=== PATIENT | female | born 1950 | race Caucasian/White ===

== ENCOUNTER 2017-10-12 18:50 | Emergency (ER) | payer MEDICARE ==
[~2017-10-12] VITALS: Ht 160 cm; Wt 63.5 kg
[2017-10-12] MEDS ORDERED: ROPINIROLE HC0.25 MG PO (18:53)
[2017-10-12] MEDS ORDERED: KLONOPIN1 MG ORAL (18:53)
[2017-10-12] MEDS ORDERED: TRAZODONE HCL50 MG ORAL (18:53)
[2017-10-12] MEDS ORDERED: ATORVASTATIN CA20 MG ORAL (18:53)
[2017-10-12 18:54] VITALS: BP 142/71
[2017-10-12] MEDS ORDERED: DiphenhydrAMINE 50mg/ml Inj IM ONE (19:00)
[2017-10-12] MEDS ORDERED: Haloperidol 5mg/ml Inj IM ONE (19:00)
[2017-10-12 19:04] VITALS: BP 142/74
[2017-10-12 19:39] LABS: BASOPHILS % (AUTO) 1.8 % (0.0-2.0); EOSINOPHILS % (AUTO) 1.8 % (0.0-3.0); HEMOGLOBIN 11.4 G/DL (12.0-16.0); LYMPHOCYTES % (AUTO) 21.4 % (20.0-45.0); MEAN CORPUSCULAR VOLUME 91 FL (80-99); MONOCYTES % (AUTO) 10.5 % (1.0-10.0); NEUTROPHILS % (AUTO) 64.6 % (45.0-75.0); PLATELET COUNT 392 K/UL (150-450); RED BLOOD COUNT 3.64 M/UL (4.20-5.40); RED CELL DISTRIBUTION WIDTH 12.7 % (11.6-14.8); WHITE BLOOD COUNT 10.8 K/UL (4.8-10.8)
[2017-10-12 19:42] LABS: ANION GAP 11 mmol/L (5-15); BLOOD UREA NITROGEN 43 mg/dL (7-18); CALCIUM 10.6 MG/DL (8.5-10.1); CARBON DIOXIDE 26 MMOL/L (21-32); CHLORIDE 95 MMOL/L (98-107); CREATININE 1.2 MG/DL (0.55-1.30); POTASSIUM 3.9 MMOL/L (3.5-5.1); SODIUM 132 MMOL/L (136-145)
[2017-10-12] MEDS ORDERED: LORazepam Inj 2mg/ml 1ml IM ONE (19:45)
[2017-10-12 19:58] LABS: ALANINE AMINOTRANSFERASE 25 U/L (12-78); ALBUMIN 4.1 G/DL (3.4-5.0); ALKALINE PHOSPHATASE 90 U/L (46-116); ASPARTATE AMINO TRANSFERASE 18 U/L (15-37); BILIRUBIN,TOTAL 0.4 MG/DL (0.2-1.0)
--- NOTE | 2017-10-12 20:23 | Diagnostic Imaging Report ---
EXAM: CT Head Without Intravenous Contrast CLINICAL HISTORY: PAIN TECHNIQUE: Axial computed tomography images of the head/brain without intravenous contrast. CTDI is 70 mGy and DLP is 1319 mGy-cm. One or more of the following dose reduction techniques were used: automated exposure control, adjustment of the mA and/or kV according to patient size, use of iterative reconstruction technique. COMPARISON: No relevant prior studies available. FINDINGS: Brain: Unremarkable. No hemorrhage. No edema. Ventricles: Unremarkable. No ventriculomegaly. Bones/joints: Unremarkable. No acute fracture. Soft tissues: Unremarkable. Sinuses: Unremarkable as visualized. Mastoid air cells: Right mastoid air cells chronic changes. IMPRESSION: No acute intracranial abnormality.
[2017-10-12 20:26] LABS: APPEARANCE,URINE CLEAR; BILIRUBIN, URINE NEGATIVE (NEGATIVE); COLOR,URINE PALE YELLOW; GLUCOSE, URINE (UA) NEGATIVE (NEGATIVE); KETONES,URINE NEGATIVE (NEGATIVE); LEUKOCYTE ESTERASE ,URINE NEGATIVE (NEGATIVE); NITRITE,URINE NEGATIVE (NEGATIVE); PH,URINE 5 (4.5-8.0); PROTEIN,URINE NEGATIVE (NEGATIVE); UROBILINOGEN,URINE NORMAL MG/DL (0.0-1.0)
--- NOTE | 2017-10-12 21:26 | Emergency Room Report ---
History of Present Illness General Chief Complaint: Behavioral Complaint Source: Patient (Fede Em) Present Illness HPI 67-year-old female patient presents ER brought in by ambulance due to behavioral disorder. EMS reports that he was called by patient's and after she laid down in the hallway and began screaming. Please were called to the scene due to concern over patient being combative, patient was not being combative. Patient repeatedly screaming "I am ". Patient is a poor historian and not answering questions at this time. He is reports patient is a history of diabetes, so no other past medical history. Does not know medications patient is currently taking. Patient denies fever, chest pain or shortness breath, abdominal pain, vomiting. No reports of head trauma or injury. EMS reports family member stated this is not her normal behavior. (Fede Em) Allergies: Coded Allergies: PENICILLINS (Verified Allergy, Mild, 10/12/17) Uncoded Allergies: INSULIN (Allergy, Unknown, 10/12/17) Patient History Past Medical History: see triage record Reviewed Nursing Documentation: PMH: Agreed; PSxH: Agreed (Fede Em) Nursing Documentation-PMH Past Medical History: No History, Except For Hx Diabetes: Yes (Fede Em) Review of Systems All Other Systems: negative except mentioned in HPI (Fede Em) Physical Exam Vital Signs Date Time Temp Pulse Resp B/P (MAP) Pulse Ox O2 Delivery O2 Flow Rate FiO2 10/12/17 18:49 97.8 102 18 142/71 97 Room Air 97.9 Sp02 EP Interpretation: reviewed, normal General Appearance: well appearing, no apparent distress, alert, GCS 15, non- toxic Head: normocephalic, atraumatic Eyes: bilateral eye normal inspection, bilateral eye PERRL ENT: hearing grossly normal, normal pharynx, no angioedema, normal voice, uvula midline, moist mucus membranes Neck: full range of motion Respiratory: lungs clear, normal breath sounds, no rhonchi, no respiratory distress, no accessory muscle use, no wheezing, speaking full sentences Cardiovascular #1: regular rate, rhythm, no edema Gastrointestinal: non tender, soft, no mass, non-distended, no guarding, no rebound Genitourinary: no CVA tenderness Musculoskeletal: back normal, digits/nails normal, gait/station normal, normal range of motion, non-tender Neurologic: alert, oriented x3, responsive, motor strength/tone normal, sensory intact Psychiatric: other - agitated Skin: no rash (Fede Em) Medical Decision Making PA Attestation Dr. Monaco is my supervising Physician whom patient management has been discussed with. (Fede Em) Diagnostic Impression: Primary Impression: Behavioral disorder ER Course Pt. presents to the ED c/o behavioral disorder, BIB ambulance. Ddx considered but are not limited to anxiety, depression, drug use, alcohol use , behavioral disorder. Vital signs: are WNL, pt. is afebrile Ordered labs, urine drug screen, serum alcohol. ER COURSE: patient initially appeared extremely agitated and screaming at the top of her lungs. Provide patient with Haldol, Benadryl, Ativan while in the ER. contacted patient's family members, patient is currently in [place] visiting her sick and, originally from [place]. Spoke with the patient's on the phone. Boby Johnson . says patient was hospitalized 3 years ago while being weaned off Klonopin she had been on for over a decade, does not know why she was taking Klonopin. Ports she was then again hospitalized 2 years ago with similar symptoms. Denies history of seizure, alcohol use, [place], stroke. Reports patient uses marijuana occasionally, no other drug use. Patient states that she has been seen by a psychiatrist, will contact psychiatrists and asked him to speak with me. reports no recent family loss, states patient is visiting a and out here in [place] who is on dialysis. Reports patient was taking albuterol, Lipitor, Symbicort, Imiparamine, Levocetirizine, levothyroxine, Singulair, Benicar, Actos, ropinirole, Prozac, Bystolic. Spoke with the patient's psychiatrist on the phone, Dr. Johnathan Grimm. states patient has a history of panic disorder and other behavioral problems. Patient is still taking Klonopin, sometimes has "psychotic breaks" when she stops taking her medication. No history of SI or HI. Believes patient may benefit from inpatient psychiatric treatment. CBC and CMP unremarkable, no abnormal elevation or depression of her glucose level. TSH within normal limits Urine drug screen positive for THC, negative for THC, patient has known history of marijuana use. Negative benzodiazepine level concerning for patient not taking her medication. UA negative Clonazepam level pending, is a send out. CT head negative for acute intracranial abnormality. Patient resting comfortably, able to answer questions. denies acute complaints at this time. He denies fever, chest pain or shortness of breath. Denies thoughts of hurting herself or others. Patient does not want to be transferred to psychiatric facility on voluntary hold. Patient states she is OK to be admitted to hospital or wait in the ER Patient states she did not take her Klonopin today. Will provide to patient, benzo negative in urine, likely patient did not take medication. Patient requesting ropinirole for restless leg, states did not take medication. Will provide to patient. Patient reports she has been taking her other medications. Patient needs psychiatric evaluation. Spoke with patient on the phone regarding treatment plan. Patient care transferred to Dr. Ferguson. - Please note that this Emergency Department Report was dictated using [email or web address] technology software, occasionally this can lead to erroneous entry secondary to interpretation by the dictation equipment. Labs Test 10/12/17 19:13 10/12/17 20:00 White Blood Count 10.8 K/UL (4.8-10.8) Red Blood Count 3.64 M/UL (4.20-5.40) Hemoglobin 11.4 G/DL (12.0-16.0) Hematocrit 33.0 % (37.0-47.0) Mean Corpuscular Volume 91 FL (80-99) Mean Corpuscular Hemoglobin 31.3 PG (27.0-31.0) Mean Corpuscular Hemoglobin Concent 34.5 G/DL (32.0-36.0) Red Cell Distribution Width 12.7 % (11.6-14.8) Platelet Count 392 K/UL (150-450) Mean Platelet Volume 6.4 FL (6.5-10.1) Neutrophils (%) (Auto) 64.6 % (45.0-75.0) Lymphocytes (%) (Auto) 21.4 % (20.0-45.0) Monocytes (%) (Auto) 10.5 % (1.0-10.0) Eosinophils (%) (Auto) 1.8 % (0.0-3.0) Basophils (%) (Auto) 1.8 % (0.0-2.0) Sodium Level 132 MMOL/L (136-145) Potassium Level 3.9 MMOL/L (3.5-5.1) Chloride Level 95 MMOL/L (98-107) Carbon Dioxide Level 26 MMOL/L (21-32) Anion Gap 11 mmol/L (5-15) Blood Urea Nitrogen 43 mg/dL (7-18) Creatinine 1.2 MG/DL (0.55-1.30) Estimat Glomerular Filtration Rate 45.0 mL/min (>60) Glucose Level 154 MG/DL (74-106) Calcium Level 10.6 MG/DL (8.5-10.1) Total Bilirubin 0.4 MG/DL (0.2-1.0) Aspartate Amino Transf (AST/SGOT) 18 U/L (15-37) Alanine Aminotransferase (ALT/SGPT) 25 U/L (12-78) Alkaline Phosphatase 90 U/L (46-116) Total Protein 8.5 G/DL (6.4-8.2) Albumin 4.1 G/DL (3.4-5.0) Globulin 4.4 g/dL Thyroid Stimulating Hormone (TSH) 1.479 uiU/mL (0.358-3.740) Salicylates Level 2.6 ug/mL (2.8-20) Acetaminophen Level < 2 MCG/ML (10-30) Serum Alcohol < 3 mg/dL Urine Color Pale yellow Urine Appearance Clear Urine pH 5 (4.5-8.0) Urine Specific [place] 1.010 (1.005-1.035) Urine Protein Negative (NEGATIVE) Urine Glucose (UA) Negative (NEGATIVE) Urine Ketones Negative (NEGATIVE) Urine Blood Negative (NEGATIVE) Urine Nitrite Negative (NEGATIVE) Urine Bilirubin Negative (NEGATIVE) Urine Urobilinogen Normal MG/DL (0.0-1.0) Urine Leukocyte Esterase Negative (NEGATIVE) Urine Opiates Screen Negative (NEGATIVE) Urine Barbiturates Screen Negative (NEGATIVE) Phencyclidine (PCP) Screen Negative (NEGATIVE) Urine Amphetamines Screen Negative (NEGATIVE) Urine Benzodiazepines Screen Negative (NEGATIVE) Urine Cocaine Screen Negative (NEGATIVE) Urine Marijuana (THC) Screen Positive (NEGATIVE) (Fede Em) ER Course Patient was endorsed to me by Dr. Ferguson. Patient was currently pending psychiatric consult. The patient noted to be awake and alert. She denies any suicidal thoughts. The patient was noted to have improvement in her mental status over time. The patient noted be a ambulatory without assistance. The patient's presented to the hospital and states he feels comfortable taking the patient home for outpatient psychiatric follow-up. The she states that the patient has had similar episodes in the past when she forgets to take her benzodiazepines. Labs Test 10/12/17 19:13 10/12/17 20:00 White Blood Count 10.8 K/UL (4.8-10.8) Red Blood Count 3.64 M/UL (4.20-5.40) Hemoglobin 11.4 G/DL (12.0-16.0) Hematocrit 33.0 % (37.0-47.0) Mean Corpuscular Volume 91 FL (80-99) Mean Corpuscular Hemoglobin 31.3 PG (27.0-31.0) Mean Corpuscular Hemoglobin Concent 34.5 G/DL (32.0-36.0) Red Cell Distribution Width 12.7 % (11.6-14.8) Platelet Count 392 K/UL (150-450) Mean Platelet Volume 6.4 FL (6.5-10.1) Neutrophils (%) (Auto) 64.6 % (45.0-75.0) Lymphocytes (%) (Auto) 21.4 % (20.0-45.0) Monocytes (%) (Auto) 10.5 % (1.0-10.0) Eosinophils (%) (Auto) 1.8 % (0.0-3.0) Basophils (%) (Auto) 1.8 % (0.0-2.0) Sodium Level 132 MMOL/L (136-145) Potassium Level 3.9 MMOL/L (3.5-5.1) Chloride Level 95 MMOL/L (98-107) Carbon Dioxide Level 26 MMOL/L (21-32) Anion Gap 11 mmol/L (5-15) Blood Urea Nitrogen 43 mg/dL (7-18) Creatinine 1.2 MG/DL (0.55-1.30) Estimat Glomerular Filtration Rate 45.0 mL/min (>60) Glucose Level 154 MG/DL (74-106) Calcium Level 10.6 MG/DL (8.5-10.1) Total Bilirubin 0.4 MG/DL (0.2-1.0) Aspartate Amino Transf (AST/SGOT) 18 U/L (15-37) Alanine Aminotransferase (ALT/SGPT) 25 U/L (12-78) Alkaline Phosphatase 90 U/L (46-116) Total Protein 8.5 G/DL (6.4-8.2) Albumin 4.1 G/DL (3.4-5.0) Globulin 4.4 g/dL Thyroid Stimulating Hormone (TSH) 1.479 uiU/mL (0.358-3.740) Salicylates Level 2.6 ug/mL (2.8-20) Acetaminophen Level < 2 MCG/ML (10-30) Serum Alcohol < 3 mg/dL Urine Color Pale yellow Urine Appearance Clear Urine pH 5 (4.5-8.0) Urine Specific [place] 1.010 (1.005-1.035) Urine Protein Negative (NEGATIVE) Urine Glucose (UA) Negative (NEGATIVE) Urine Ketones Negative (NEGATIVE) Urine Blood Negative (NEGATIVE) Urine Nitrite Negative (NEGATIVE) Urine Bilirubin Negative (NEGATIVE) Urine Urobilinogen Normal MG/DL (0.0-1.0) Urine Leukocyte Esterase Negative (NEGATIVE) Urine Opiates Screen Negative (NEGATIVE) Urine Barbiturates Screen Negative (NEGATIVE) Phencyclidine (PCP) Screen Negative (NEGATIVE) Urine Amphetamines Screen Negative (NEGATIVE) Urine Benzodiazepines Screen Negative (NEGATIVE) Urine Cocaine Screen Negative (NEGATIVE) Urine Marijuana (THC) Screen Positive (NEGATIVE) (Jonas Dahl MD) CT/MRI/US Diagnostic Results CT/MRI/US Diagnostic Results : Imaging Test Ordered: CT head Impression No acute intracranial abnormality (Fede Em P.AJuventino) Last Vital Signs Date Time Temp Pulse Resp B/P (MAP) Pulse Ox O2 Delivery O2 Flow Rate FiO2 10/12/17 19:04 97 16 142/74 98 Room Air 10/12/17 18:54 97.9 97.9 (Fede Em.Rachael) Status: improved (Jonas Dahl MD) Disposition: HOME, SELF-CARE Condition: Stable Referrals: NOT CHOSEN IPA/,REFERRING (PCP) Fede Em Oct 12, 2017 21:26 Jonas Dahl MD Oct 13, 2017 09:01
[2017-10-12 22:15] VITALS: BP 124/65
[2017-10-12] MEDS ORDERED: rOPINIRole 0.25mg tab ORAL ONE (22:30)
[2017-10-13 08:21] VITALS: BP 118/76
[2017-10-13] MEDS ORDERED: rOPINIRole 0.25mg tab ORAL ONE (08:30)
[2017-10-13] MEDS ORDERED: Albuterol/Ipratropium 3ml neb HHN ONE (10:45)
[2017-10-13 10:46] VITALS: BP 124/74
[2017-10-13 12:24] VITALS: BP 124/74
== END 2017-10-13 12:15 | disposition home or self-care (01) ==
LOC: EDBD 18:50 → EMR 19:25
DX: F91.9 Conduct disorder, unspecified (principal); Z88.1 Allergy status to other antibiotic agents; Z88.8 Allergy status to other drugs, medicaments and biological substances
CPT/HCPCS: 36415; 70450; 80053; 80307; 81003; 84443; 85025; 96372; 96374; 99284; G0480; J1200; J1630; J2405; 80329; J7620